=== PATIENT | female | born 1965 | race American Indian/Alaskan Native ===

== ENCOUNTER 2017-08-16 11:26 | Outpatient (CLI) | payer BC ==
--- NOTE | 2017-08-17 09:07 | XRay Report ---
BILATERAL HIPS WITH PELVIS, 3 VIEWS: History: Pain. Findings: Bone mineralization is within normal limits. There is no evidence for fracture, dislocation or pelvic diastasis. No advanced joint pathology is detected. The soft tissues are unremarkable. Impression: Unremarkable exam.
--- NOTE | 2017-08-17 09:15 | XRay Report ---
Single AP view right and left knee standing: History: Knee pain. Findings: Very minimal narrowing of the medial compartment of the right and left knee joint. The lateral compartment appears unremarkable. Articular surfaces appears normal. No soft tissue calcification. Impression: Minimal symmetric bilateral narrowing of the medial compartment of knee joints.
== END 2017-08-16 11:27 | disposition home or self-care (01) ==
LOC: XRAY 11:26
PROVIDERS: ATTEND Orthopaedic Surgery
DX: M25.561 Pain in right knee (principal); M25.562 Pain in left knee; M25.551 Pain in right hip; M25.552 Pain in left hip
CPT/HCPCS: 73521; 73565

== ENCOUNTER 2017-09-01 06:25 | Day surgery (SDC) | payer BC ==
[~2017-09-01 06:25] MED LIST: ANCEF/STERILE WATER 2 GM/20 ML IV NR
--- NOTE | 2017-09-01 07:33 | Anesthesia Consultation ---
Anesthesia Consult and Med Hx Date of service: 09/01/17 - Airway Anesthetic Teeth Evaluation: Good ROM Head & Neck: Adequate Mental/Hyoid Distance: Adequate Mallampati Class: Class I Intubation Access Assessment: Good - Pulmonary Exam CTA: Yes - Cardiac Exam Cardiac Exam: RRR - Pre-Operative Health Status ASA Pre-Surgery Classification: ASA3 Proposed Anesthetic Plan: MAC - Pulmonary Hx Smoking: Yes (1 PPD X 35 YRS) Hx Sleep Apnea: No (SILVER PRE SCREEN LOW RISK) - Cardiovascular System Hx Hypertension: No - Endocrine Hx Non-Insulin Dependent Diabetes: Yes - Other Systems Hx Cancer: No
--- NOTE | 2017-09-01 07:33 | Anesthesia Day of Surgery ---
Anesthesia Day of Surgery - Day of Surgery Patient Examined: Yes Patient H&P Reviewed: Yes Patient is NPO: Yes
[2017-09-01] MEDS ORDERED: NACL BACTERIOSTATIC INFILTRATI ONE (07:34)
[2017-09-01] MEDS ORDERED: DIPRIVAN 10 MG/ML IV ONE ×5 (07:49→09:11)
[2017-09-01] MEDS ORDERED: DILAUDID ONE ×2 (07:49→08:58)
[2017-09-01] MEDS ORDERED: MARCAINE 0.25% INFILTRATI ONE ×3 (07:50→08:48)
[2017-09-01] MEDS ORDERED: XYLOCAINE 1% 20 mL ONE (07:50)
[2017-09-01] MEDS ORDERED: PEPCID PO NR (08:00)
[2017-09-01] MEDS ORDERED: PERCOCET 5/325 PO PRN (08:00)
[2017-09-01] MEDS ORDERED: NACL 0.9% 1000 ML 1,000 ML IV SCH (08:00)
[2017-09-01] MEDS ORDERED: VERSED IV NR (08:00)
[2017-09-01] MEDS ORDERED: ZOFRAN IV PRN (08:00)
[2017-09-01] MEDS ORDERED: XYLOCAINE MPF 2% ONE (08:41)
[2017-09-01] MEDS ORDERED: ROBINUL ONE (08:41)
[2017-09-01] MEDS ORDERED: ZOFRAN ONE (08:41)
[2017-09-01] MEDS ORDERED: NACL 0.9% IR ONE (08:48)
[2017-09-01] MEDS ORDERED: XYLOCAINE 1% 20 mL INFILTRATI ONE ×2 (08:48)
[2017-09-01] MEDS ORDERED: VERSED ONE (08:56)
[2017-09-01] MEDS ORDERED: BREVIBLOC IV ONE (09:01)
[2017-09-01] MEDS ORDERED: NACL 0.9% 1000 ML 1,000 ML ONE (09:07)
[2017-09-01] MEDS ORDERED: TORADOL ONE (09:34)
[2017-09-01] MEDS: DILAUDID IV PRN ×2 (09:45→10:10)
--- NOTE | 2017-09-01 09:57 | Procedure Note ---
Date of procedure: 09/01/17 Pre-op diagnosis: right great toe pain Post-op diagnosis: same Procedure: Procedure Dorsal Chelectomy right 1st metatarsal Indications A 52-year-old female who complains of pain and stiffness at the right great toe off and on for several months patient states she's tried conservative treatment with no significant relief plain x-rays done preoperatively show dorsal osteophytes at the first metatarsal head. Procedure She was brought to the OR placed on table in supine position following induction with MAC anesthesia the patient's right lower extremity was prepped and draped in the usual sterile manner. A timeout procedure was done to identify the patient and the correct operative site. The leg was then exsanguinated followed by inflation of the pneumatic tourniquet to 300 mmHg a dorsomedial incision was made centered over the first metatarsophalangeal joint this was taken down through skin and subcutaneous care was taken to identify the patient's neurovascular structures and these were retracted out of the operative field A dorsal capsulotomy was performed. Periosteal tissues were elevated off of the first metatarsal and proximal phalanx to expose the joint patient was noted to have a fairly large dorsal osteophyte as well as a moderate medial prominence a small oscillating saw was used to resect the osteophytes dorsally and medially care was used to protect the soft tissue structures nicely bone was then rasped followed by irrigation, the capsular tissues were repaired using 0 Vicryl followed by closure of the skin with 3-0 Monocryl routine. Dressings were applied the patient tolerated procedure and no complications she was taken to postanesthesia recovery in stable condition Anesthesia: MAC Surgeon: MARGO CA Estimated blood loss: minimal Pathology: list (bone fragments right first metatarsal) Specimen disposition: to lab Condition: stable Disposition: PACU
--- NOTE | 2017-09-01 10:00 | Post Anesthesia Evaluation ---
- Post Anesthesia Evaluation Patient Participated: Yes Airway Patent: Yes Stable Respiratory Function: Yes Temp > 96.8F: Yes Pain Manageable: Yes Adequeate Hydration: Yes Anesthesia Complications: No
[2017-09-01 10:39] VITALS: BP 112/70
== END 2017-09-01 10:55 | disposition home or self-care (01) ==
LOC: OR 06:25
PROVIDERS: ATTEND Orthopaedic Surgery
DX: M25.774 Osteophyte, right foot (principal); E11.9 Type 2 diabetes mellitus without complications; Z87.891 Personal history of nicotine dependence
CPT/HCPCS: 28122; 82962; 88304; 88311; J0690; J1170; J1885; J2250; J2405; J2704; J7030